=== PATIENT | male | born 1990 | race Caucasian/White ===

== ENCOUNTER 2017-05-28 09:08 | Observation (INO) | payer SELFPAY ==
[2017-05-28] MEDS ORDERED: FENTANYL CITRATE INJ/PF 100 MCG/2 ML AMPUL IV ONE (09:23)
[2017-05-28] MEDS ORDERED: METOCLOPRAMIDE HCL INJ/PF 10 MG/2 ML SDV IV ONE (09:23)
[2017-05-28] MEDS ORDERED: NORMAL SALINE 1000 ML 1,000 ML IV ONE (09:23)
--- NOTE | 2017-05-28 09:24 | ER Document Report ---
ED Medical Screen (RME) - General Chief Complaint: Abdominal Pain Stated Complaint: ABDOMINAL PAIN Time Seen by Provider: 05/28/17 09:19 Mode of Arrival: Ambulatory Information source: Patient Notes: 26-year-old male presents with complaints of generalized abdominal pain worse in the right lower quadrant since last night. Patient denies any fevers chills nausea vomiting or diarrhea. Patient notes it hurts in any position. Patient denies any previous similar episodes denies any previous abdominal surgeries I have greeted and performed a rapid initial assessment of this patient. A comprehensive ED assessment and evaluation of the patient, analysis of test results and completion of the medical decision making process will be conducted by additional ED providers. PHYSICAL EXAMINATION: GENERAL: Well-appearing, well-nourished and in no acute distress. HEAD: Atraumatic, normocephalic. EYES: Pupils equal round extraocular movements intact, conjunctiva are normal. ENT: Nares patent NECK: Normal range of motion Abdomen: Tender in the right lower quadrant LUNGS: No respiratory distress Musculoskeletal: Normal range of motion NEUROLOGICAL: Normal speech, normal gait. PSYCH: Normal mood, normal affect. SKIN: Warm, Dry, normal turgor, no rashes or lesions noted. TRAVEL OUTSIDE OF THE [place] IN LAST 30 DAYS: No - Related Data Allergies/Adverse Reactions: No Known Allergies Allergy (Unverified 05/28/17 09:19) Past Medical History - Social History Frequency of alcohol use: None Drug Abuse: None Renal/ Medical History: Denies: Hx Peritoneal Dialysis Physical Exam - Vital signs Vitals: Temp Pulse Resp BP Pulse Ox 98.8 F 75 17 157/86 H 97 05/28/17 09:12 05/28/17 09:12 05/28/17 09:12 05/28/17 09:12 05/28/17 09:12 Course - Vital Signs Vital signs: Temp Pulse Resp BP Pulse Ox 98.8 F 75 17 157/86 H 97 05/28/17 09:12 05/28/17 09:12 05/28/17 09:12 05/28/17 09:12 05/28/17 09:12
[2017-05-28 09:51] LABS: HEMATOCRIT 47.8 % (37.9-51.0); HEMOGLOBIN 16.3 g/dL (13.5-17.0); MEAN CORPUSCULAR HEMOGLOBIN 30.4 pg (27.0-33.4); MEAN CORPUSCULAR HGB CONC 34.1 g/dL (32.0-36.0); MEAN CORPUSCULAR VOLUME 89 fl (80-97); PLATELET COUNT 186 10^3/uL (150-450); RED BLOOD COUNT 5.37 10^6/uL (4.35-5.55); RED CELL DISTRIBUTION WIDTH 12.4 % (11.5-14.0); WHITE BLOOD COUNT 26.7 10^3/uL (4.0-10.5)
[2017-05-28 09:57] LABS: APPEARANCE,URINE CLEAR; BILIRUBIN,URINE NEGATIVE (NEGATIVE); COLOR,URINE YELLOW; GLUCOSE, URINE NEGATIVE (NEGATIVE); KETONES,URINE TRACE mg/dL (NEGATIVE); LEUKOCYTE ESTERASE,URINE NEGATIVE (NEGATIVE); NITRITE,URINE NEGATIVE (NEGATIVE); PROTEIN,URINE NEGATIVE (NEGATIVE); URINE SPECIFIC GRAVITY 1.026
--- NOTE | 2017-05-28 09:59 | ER Document Report ---
ED GI/ - General Chief Complaint: Abdominal Pain Stated Complaint: ABDOMINAL PAIN Time Seen by Provider: 05/28/17 09:19 Mode of Arrival: Ambulatory Notes: Patient is a 26-year-old male presents emergency department with chief complaint of abdominal pain. Patient says it started last evening approximately 12 hours ago generalized abdominal pain and this morning he woke up a visit with his right lower quadrant. He admits to nausea without vomiting denies any fevers or chills, diarrhea consultation. Patient states that his last bowel movement was last evening and was loose. Denies anyUrinary symptoms. Denies any history of kidney stones. Denies any flank pain at this time. Denies any previous abdominal surgeries patient is a pack-a-day smoker TRAVEL OUTSIDE OF THE [place] IN LAST 30 DAYS: No - Related Data Allergies/Adverse Reactions: No Known Allergies Allergy (Unverified 05/28/17 09:19) Past Medical History - General Information source: Patient - Social History Smoking Status: Current Every Day Smoker Frequency of alcohol use: None Drug Abuse: None Family History: Reviewed & Not Pertinent Patient has suicidal ideation: No Patient has homicidal ideation: No Renal/ Medical History: Denies: Hx Peritoneal Dialysis Review of Systems - Review of Systems Notes: REVIEW OF SYSTEMS: CONSTITUTIONAL : Denies fever, chills, or sweats. Denies recent illness. CARDIOVASCULAR: Denies chest pain. Denies palpitations or racing or irregular heart beat. Denies ankle edema. RESPIRATORY: Denies cough, cold, or chest congestion. Denies shortness of breath, difficulty breathing, or wheezing. GASTROINTESTINAL: See hpi. Denies vomiting, or diarrhea. Denies blood in vomitus, stools, or per rectum. Denies black, tarry stools. Denies constipation. GENITOURINARY: Denies difficulty urinating, painful urination, burning, frequency, blood in urine, or discharge. MUSCULOSKELETAL: Denies any muscle spasms, difficulty walking, extremity pain SKIN: Denies rash, lesions or sores. HEMATOLOGIC : Denies easy bruising or bleeding. LYMPHATIC: Denies swollen, enlarged glands. NEUROLOGICAL: Denies confusion or altered mental status. Denies passing out or loss of consciousness. Denies dizziness or lightheadedness. Denies headache. Denies weakness or paralysis or loss of use of either side. Denies problems with gait or speech. Denies sensory loss, numbness, or tingling. Denies seizures. PSYCHIATRIC: Denies anxiety or stress. Denies depression, suicidal ideation, or homicidal ideation. ALL OTHER SYSTEMS REVIEWED AND NEGATIVE. Dictation was performed using [employer] voice recognition software Physical Exam - Vital signs Vitals: Temp Pulse Resp BP Pulse Ox 98.8 F 75 17 157/86 H 97 05/28/17 09:12 05/28/17 09:12 05/28/17 09:12 05/28/17 09:12 05/28/17 09:12 - Notes Notes: PHYSICAL EXAM GENERAL: Alert, interacts well. HEAD: Normocephalic, atraumatic. NECK: Full range of motion. Supple. Trachea midline. LUNGS: Clear to auscultation bilaterally, no wheezes, rales, or rhonchi. No respiratory distress. HEART: Regular rate and rhythm. No murmurs, gallops, or rubs. ABDOMEN: Soft, nondistended, moderate right lower quadrant tenderness. Positive McBurney's point tenderness. No guarding, rebound, or rigidity.. Bowel sounds present in all 4 quadrants. EXTREMITIES: Moves all 4 extremities spontaneously. No edema, radial and dorsalis pedis pulses 2/4 bilaterally. No cyanosis. NEUROLOGICAL: Alert and oriented x4. Normal speech. PSYCH: Normal affect, normal mood. SKIN: Warm, dry, normal turgor. No rashes or lesions noted. Course - Re-evaluation Re-evalutation: 05/28/17 13:00 Patient is a 26-year-old male who is hemodynamically stable, no acute distress afebrile. CBC with evidence of leukocytosis with left shift 26,000. Presence of right lower quadrant pain concerning for appendicitis. CT the abdomen pelvis shows acute appendicitis without evidence of abscess or perforation. Patient has been n.p.o. since midnight. Patient's been accepted to hospital service and to go to the OR for appendectomy. Patient and family member agree with plan. Stable at this time. - Vital Signs Vital signs: Temp Pulse Resp BP Pulse Ox 99.9 F 99 16 135/73 H 96 05/28/17 14:49 05/28/17 14:49 05/28/17 14:49 05/28/17 14:49 05/28/17 14:49 - Laboratory Result Diagrams: 05/28/17 09:30 05/28/17 09:30 Laboratory results interpreted by me: 05/28/17 05/28/17 09:30 09:30 WBC 26.7 H Seg Neuts % (Manual) 91 H Lymphocytes % (Manual) 4 L Abs Neuts (Manual) 24.3 H Urine Ketones TRACE H Urine Urobilinogen 4.0 H - Diagnostic Test Radiology reviewed: Image reviewed, Reports reviewed Discharge - Discharge Clinical Impression: Appendicitis Qualifiers: Appendicitis type: acute appendicitis Acute appendicitis type: with localized peritonitis Qualified Code(s): K35.3 - Acute appendicitis with localized peritonitis Condition: Stable Disposition: ADMITTED INPATIENT Admitting Provider: Surgicalist
[2017-05-28 10:10] LABS: ALANINE AMINOTRANSFERASE 53 U/L (21-72); ALBUMIN 4.7 g/dL (3.5-5.0); ALKALINE PHOSPHATASE 51 U/L (38-126); ANION GAP 11 (5-19); ASPARTATE AMINO TRANSFERASE 21 U/L (17-59); BILIRUBIN,DIRECT 0.4 mg/dL (0.0-0.4); BILIRUBIN,TOTAL 0.5 mg/dL (0.2-1.3); BLOOD UREA NITROGEN 13 mg/dL (7-20); CALCIUM 9.9 mg/dL (8.4-10.2); CARBON DIOXIDE 24 mmol/L (22-30); CHLORIDE 106 mmol/L (98-107); GLUCOSE 110 mg/dL (75-110); LIPASE 31.5 U/L (23-300); POTASSIUM 4.4 mmol/L (3.6-5.0); SODIUM 140.6 mmol/L (137-145); TOTAL PROTEIN 7.3 g/dL (6.3-8.2)
[2017-05-28 10:21] LABS: ABSOLUTE LYMPHOCYTES# (MANUAL) 1.1 10^3/uL (0.5-4.7); ABSOLUTE MONOCYTES # (MANUAL) 1.1 10^3/uL (0.1-1.4); ABSOLUTE NEUTROPHILS# (MANUAL) 24.3 10^3/uL (1.7-8.2); BASOPHILS % (MANUAL) 0 % (0-2); EOSINOPHILS % (MANUAL) 1 % (0-6); LYMPHOCYTES % (MANUAL) 4 % (13-45); MONOCYTES % (MANUAL) 4 % (3-13); SEGMENTED NEUTROPHILS % (MAN) 91 % (42-78); TOTAL CELLS COUNTED 100
[2017-05-28 10:22] LABS: PLATELET COMMENT ADEQUATE; RBC MORPHOLOGY COMMENT NORMO-CYTIC/CHROMIC
[2017-05-28] MEDS ORDERED: PROCHLORPERAZINE EDISYLATE INJ 10 MG/2 ML VIAL IV ONE (10:53)
--- NOTE | 2017-05-28 12:46 | RADIOLOGY REPORT (SQ) ---
EXAM DESCRIPTION: CT ABD/PELVIS WITH IV ORAL COMPLETED DATE/TIME: 05/28/2017 12:15 pm REASON FOR STUDY: Generalized pain worst RLQ COMPARISON: None. TECHNIQUE: CT scan of the abdomen and pelvis performed using helical scanning technique with dynamic intravenous contrast injection. No oral contrast. Images reviewed with lung, soft tissue, and bone windows. Reconstructed coronal and sagittal MPR images reviewed. Delayed images for evaluation of the urinary system also acquired. All images stored on PACS. All CT scanners at this facility use dose modulation, iterative reconstruction, and/or weight based d osing when appropriate to reduce radiation dose to as low as reasonably achievable (ALARA). [facility]: Dose Right [facility]: CareDose [facility]: Dose Right [facility]: Teradose 4D [facility]: Cerora CONTRAST TYPE AND DOSE: contrast/concentration: Isovue 370.00 mg/ml; Total Contrast Delivered: 100.0 ml; Total Saline Delivered: 72.0 ml RENAL FUNCTION: BUN 13 creatinine 0.86. RADIATION DOSE: CT Rad equipment meets quality standard of care and radiation dose reduction techniq ues were employed. CTDIvol: 11.5 - 15.4 mGy. DLP: 1514 mGy-cm.. LIMITATIONS: None. FINDINGS: LOWER CHEST: No significant findings. No nodules or infiltrates. LIVER: Normal size. No masses. No dilated ducts. SPLEEN: Normal size. No focal lesions. PANCREAS: No masses. No significant calcifications. No adjacent inflammation or peripancreatic fluid collections. Pancreatic duct not dilated. GALLBLADDER: No identified stones by CT criteria. No inflammatory changes to suggest cholecystitis. ADRENAL GLANDS: No significant masses or asymmetry. RIGHT KIDNEY AND URETER: No solid masses. No significant calcifications. No hydronephrosis or hyd roureter. LEFT KIDNEY AND URETER: No solid masses. No significant calcifications. No hydronephrosis or hydr oureter. AORTA AND VESSELS: No aneurysm. No dissection. Renal arteries, SMA, celiac without stenosis. RETROPERITONEUM: No retroperitoneal adenopathy, hemorrhage or masses. BOWEL AND PERITONEAL CAVITY: No masses or inflammatory changes. No free fluid or peritoneal masses. APPENDIX: Distended with thickened wall. Best visualized on coronal images (series 601 images 26 to 34). Transverse measurement 9 to 10 mm. Areas of high density material within the lumen, possible a ppendicoliths. Inflammatory stranding in the periappendiceal soft tissues. No abnormal fluid collec tion or gas. PELVIS: No mass. No free fluid. Normal bladder. ABDOMINAL WALL: No masses. No hernias. BONES: No significant or acute findings. OTHER: No other significant finding. IMPRESSION: 1. ACUTE APPENDICITIS. NO EVIDENCE OF ABSCESS OR PERFORATION. 2. NO OTHER SIGNIFICANT OR ACUTE FINDING IN THE ABDOMEN OR PELVIS ON CT SCAN WITH IV CONTRAST. TECHNICAL DOCUMENTATION: JOB ID: [id number] Quality ID # [id number]: Final reports with documentation of one or more dose reduction techniques (e.g., Au tomated exposure control, adjustment of the mA and/or kV according to patient size, use of iterative reconstruction technique) 2010 [employer]- All Rights Reserved Reading location - IP/workstation name: [email or web address]
[2017-05-28] MEDS ORDERED: PIPERACILLIN/TAZOBACTAM 3.375 GM VIAL IV ONE (13:43)
[2017-05-28] MEDS ORDERED: BUPIVACAINE HCL 0.25 % INJ/PF (2.5 MG/1 ML) 30 ML VIAL ONE (14:26)
[2017-05-28] MEDS ORDERED: LIDOCAINE 1% INJ-PF (10 MG/ML) 30 ML SDV ONE (14:26)
[2017-05-28] MEDS: RINGERS SOLUTION,LACTATED 1,000 ML IV PRN (14:37)
[2017-05-28] MEDS ORDERED: DEXAMETHASONE SOD PHOSPHATE INJ 4 MG/1 ML VIAL ONE (15:50)
[2017-05-28] MEDS ORDERED: ROCURONIUM BROMIDE INJ 50 MG/5 ML VIAL IV ONE (15:50)
[2017-05-28] MEDS ORDERED: SUCCINYLCHOLINE CHLORIDE INJ 200 MG/10 ML VIAL ONE (15:50)
[2017-05-28] MEDS ORDERED: ONDANSETRON HCL INJ/PF 4 MG/2 ML SDV ONE (15:50)
[2017-05-28] MEDS ORDERED: MIDAZOLAM 2 MG/2 ML INJ ONE (15:59)
[2017-05-28] MEDS ORDERED: HYDROMORPHONE HCL INJ/PF 2 MG/ML AMPULE ONE (15:59)
[2017-05-28] MEDS ORDERED: FENTANYL CITRATE INJ/PF 100 MCG/2 ML AMPUL ONE ×2 (15:59)
[2017-05-28] MEDS ORDERED: EPHEDRINE SULFATE INJ 50 MG/1 ML AMPULE ONE (16:00)
[2017-05-28] MEDS ORDERED: PROPOFOL INJ 200 MG/20 ML VIAL IV ONE (16:00)
[2017-05-28] MEDS ORDERED: ACETAMINOPHEN 100 ML IV ONE (16:00)
--- NOTE | 2017-05-28 16:19 | PDOC H&P ---
History of Present Illness Admission Date/PCP: 05/28/17 14:30 History of Present Illness: KELLY VILLEGAS is a 26 [address] old male with CT confirmed appendicitis. He had developed generalized abdominal pain that settled in the right lower quadrant beginning 11 pm last night. Associated nausea. Social History Smoking Status: Current Every Day Smoker - Advance Directive Resuscitation Status: Full Code Family History Family History: Reviewed & Not Pertinent Parental Family History Reviewed: No Children Family History Reviewed: Unknown Sibling(s) Family History Reviewed.: Unknown Medication/Allergy Home Medications: No Home Medications 05/28/17 Allergies/Adverse Reactions: No Known Allergies Allergy (Unverified 05/28/17 09:19) Review of Systems Constitutional: PRESENT: anorexia. ABSENT: chills, fever(s), headache(s), weight gain, weight loss Eyes: ABSENT: visual disturbances Ears: ABSENT: hearing changes Cardiovascular: ABSENT: chest pain, dyspnea on exertion, edema, orthropnea, palpitations Respiratory: ABSENT: cough, hemoptysis Gastrointestinal: PRESENT: as per HPI, abdominal pain, nausea Genitourinary: ABSENT: dysuria, hematuria Musculoskeletal: ABSENT: joint swelling Integumentary: ABSENT: rash, wounds Neurological: ABSENT: abnormal gait, abnormal speech, confusion, dizziness, focal weakness, syncope Psychiatric: ABSENT: anxiety, depression, homidical ideation, suicidal ideation Physical Exam Vital Signs: Temp Pulse Resp BP Pulse Ox 99.9 F 99 16 135/73 H 96 05/28/17 14:49 05/28/17 14:49 05/28/17 14:49 05/28/17 14:49 05/28/17 14:49 General appearance: PRESENT: no acute distress, well-developed, well-nourished Head exam: PRESENT: atraumatic, normocephalic Eye exam: PRESENT: conjunctiva pink, EOMI, PERRLA. ABSENT: scleral icterus Ear exam: PRESENT: normal external ear exam Neck exam: ABSENT: carotid bruit, JVD, lymphadenopathy, thyromegaly Respiratory exam: PRESENT: clear to auscultation howie. ABSENT: rales, rhonchi, wheezes Cardiovascular exam: PRESENT: RRR. ABSENT: diastolic murmur, rubs, systolic murmur GI/Abdominal exam: PRESENT: tenderness - RLQ tenderness Neurological exam: PRESENT: alert, awake, oriented to person, oriented to place , oriented to time, oriented to situation, CN II-XII grossly intact. ABSENT: motor sensory deficit Results Impressions: Abdomen/Pelvis CT 05/28/17 09:23 IMPRESSION: 1. ACUTE APPENDICITIS. NO EVIDENCE OF ABSCESS OR PERFORATION. 2. NO OTHER SIGNIFICANT OR ACUTE FINDING IN THE ABDOMEN OR PELVIS ON CT SCAN WITH IV CONTRAST. Assessment & Plan - Diagnosis (1) Appendicitis Qualifiers: Appendicitis type: acute appendicitis Acute appendicitis type: with localized peritonitis Qualified Code(s): K35.3 - Acute appendicitis with localized peritonitis Is this a current diagnosis for this admission?: Yes - Plan Summary Plan Summary: Admit NPO IV Zosyn 3.375g pain control For laparoscopic appendectomy .DVT prophylaxis
[2017-05-28] MEDS ORDERED: PROMETHAZINE HCL INJ 25 MG/1 ML VIAL IV PRN (16:48)
[2017-05-28] MEDS ORDERED: MEPERIDINE HCL/PF INJ 25 MG/1 ML DISP.SYRIN IV PRN (16:48)
[2017-05-28] MEDS ORDERED: DIPHENHYDRAMINE HCL 50 MG/ML VIAL IV PRN (16:48)
[2017-05-28] MEDS ORDERED: FENTANYL CITRATE INJ/PF 100 MCG/2 ML AMPUL IV PRN ×4 (16:48→18:13)
[2017-05-28] MEDS ORDERED: ONDANSETRON HCL INJ/PF 4 MG/2 ML SDV IV PRN (18:06)
--- NOTE | 2017-05-28 18:34 | Operative Report ---
Operative Report PREOPERATIVE DIAGNOSIS: Acute Appendicitis POSTOPERATIVE DIAGNOSIS: Acute Appendicitis OPERATION: Laparoscopic Appendectomy SURGEON: ELENA GALEANA ANESTHESIA: GA TISSUE REMOVED OR ALTERED: Appendix COMPLICATIONS: None ESTIMATED BLOOD LOSS: 10 ml INTRAOPERATIVE FINDINGS: 1. Appendix running on the lateral cecal wall. 2. Appendix is acutely infllammed with erythematous thick wall no perforation or gangrene PROCEDURE: The patient was brought to the operating room and placed on the operating table. General endotracheal anesthesia was administered and he was positioned supine with the left arm tucked by his side. The patient just received 3.375g IV Zosyn started from the ER. A time out was done. The abdomen was prepped with chloraprep and sterile drapes laid. Under sterile aseptic conditions, a Verres needle was introduced at the Walsh's point and pneumperitoneum insufflated to 15mmHg. Access to the peritoneal cavity was gained using the optical bladeless trocar technique with a 10mm port at the umbilicus. Two additional ports were placed under direct vision, a 12mm left lower quadrant port and a 5mm midline suprapubic port. The patient was then positioned in trendelenberg with his right side up. Fibrous adhesions between the appendix and mesoappendix and the lateral cecal wall were transected sharply with the scissor and the appendix bluntly teased off the mesoappendix. It was grasped with a bowel clamp and a window created in the mesoappendix at the base of the appendix. It was transected at its base with the [place] linear stapler 60mm blue load - 3.5mm closed to a 1.5mm. The mesoappendix was divided with the Ligasure. The appendix was retrieved from the peritoneal cavity in an endopouch. The umbilical and left lower quadrant port sites had their fascial layers closed with 0-prolene using the endoclosure device. The pneumoperitoneum was desufflated and all the ports removed. The skin incisions were closed with 4-0 monocryl subcuticular stitches. The wounds were infiltrated with local anesthesia, a 1:1 mixture of 1% lidocaine and 0.25% Bupivacaine, a total of 20 ml, they were cleaned and dressed with dermabond. The patient tolerated the procedure well, he was extubated in the operating room and taken to the PACU in stable condition.
[2017-05-28] MEDS ORDERED: ENOXAPARIN SODIUM INJ 40 MG/0.4 ML DISP.SYRIN SUBCUT ONE (19:00)
[2017-05-28] MEDS: PIPERACILLIN SODIUM/TAZOBACTAM 3.375 GM in NORMAL SALINE 100 ML IV SCH (21:58)
[2017-05-28] MEDS ORDERED: ZOLPIDEM TARTRATE 5 MG TABLET PO SCH (22:00)
[2017-05-29] MEDS ORDERED: PIPERACILLIN/TAZOBACTAM 3.375 GM VIAL IV SCH
[2017-05-29] MEDS: DOCUSATE SODIUM 100 MG CAPSULE PO SCH ×3 (00:28→21:28)
[2017-05-29] MEDS: ZOLPIDEM TARTRATE 5 MG TABLET PO SCH ×2 (00:28→21:27)
[2017-05-29] MEDS: PIPERACILLIN SODIUM/TAZOBACTAM 3.375 GM in NORMAL SALINE 100 ML IV SCH ×4 (02:23→21:27)
[2017-05-29] MEDS: RINGERS SOLUTION,LACTATED 1,000 ML IV PRN (02:29)
[2017-05-29 07:25] LABS: HEMATOCRIT 41.2 % (37.9-51.0); MEAN CORPUSCULAR HEMOGLOBIN 30.4 pg (27.0-33.4); MEAN CORPUSCULAR HGB CONC 34.5 g/dL (32.0-36.0); MEAN CORPUSCULAR VOLUME 88 fl (80-97); PLATELET COUNT 155 10^3/uL (150-450); RED BLOOD COUNT 4.68 10^6/uL (4.35-5.55); RED CELL DISTRIBUTION WIDTH 12.8 % (11.5-14.0); WHITE BLOOD COUNT 21.8 10^3/uL (4.0-10.5)
[2017-05-29 07:52] LABS: HEMOGLOBIN 14.2 g/dL (13.5-17.0)
[2017-05-29 08:13] LABS: ABSOLUTE LYMPHOCYTES# (MANUAL) 2.6 10^3/uL (0.5-4.7); ABSOLUTE MONOCYTES # (MANUAL) 0.2 10^3/uL (0.1-1.4); BASOPHILS % (MANUAL) 0 % (0-2); EOSINOPHILS % (MANUAL) 0 % (0-6); LYMPHOCYTES % (MANUAL) 11 % (13-45); MONOCYTES % (MANUAL) 1 % (3-13); SEGMENTED NEUTROPHILS % (MAN) 87 % (42-78); TOTAL CELLS COUNTED 100
[2017-05-29 08:14] LABS: PLATELET COMMENT ADEQUATE; TOXIC GRANULATION SLIGHT
[2017-05-29] MEDS ORDERED: DOCUSATE SODIUM 100 MG/10 ML UDC PO SCH (10:00)
[2017-05-29] MEDS: ENOXAPARIN SODIUM INJ 40 MG/0.4 ML DISP.SYRIN SUBCUT SCH (10:23)
--- NOTE | 2017-05-29 14:34 | PDOC PROGRESS REPORT ---
Subjective Progress Note for:: 05/29/17 Subjective:: POD #1 s/p laparoscopic appendectomy The patient is doing subjectively well. No abdominal pain or fever Tolerating an oral diet Reason For Visit: ACUTE APPENDICITIS Physical Exam Vital Signs: Temp Pulse Resp BP Pulse Ox 98.2 F 76 20 115/71 100 05/29/17 12:00 05/29/17 12:00 05/29/17 12:00 05/29/17 12:00 05/29/17 12:00 Intake & Output 05/28/17 05/29/17 05/30/17 06:59 06:59 06:59 Intake Total 3760 Output Total 20 Balance 3740 Weight 94.602 kg General appearance: PRESENT: no acute distress, obese, well-developed, well- nourished Head exam: PRESENT: atraumatic, normocephalic Respiratory exam: PRESENT: clear to auscultation howie. ABSENT: rales, rhonchi, wheezes Cardiovascular exam: PRESENT: RRR. ABSENT: diastolic murmur, rubs, systolic murmur GI/Abdominal exam: PRESENT: normal bowel sounds, soft, other - incisions are clean, dry, intact Neurological exam: PRESENT: alert, awake, oriented to person, oriented to place , oriented to time, oriented to situation, CN II-XII grossly intact. ABSENT: motor sensory deficit Results Laboratory Results: 05/29/17 06:57 05/29/17 06:57 WBC 21.8 H RBC 4.68 Hgb 14.2 D Hct 41.2 MCV 88 MCH 30.4 MCHC 34.5 RDW 12.8 Plt Count 155 Seg Neutrophils % Not Reportable Lymphocytes % Not Reportable Monocytes % Not Reportable Eosinophils % Not Reportable Basophils % Not Reportable Absolute Neutrophils Not Reportable Absolute Lymphocytes Not Reportable Absolute Monocytes Not Reportable Absolute Eosinophils Not Reportable Absolute Basophils Not Reportable Impressions: Abdomen/Pelvis CT 05/28/17 09:23 IMPRESSION: 1. ACUTE APPENDICITIS. NO EVIDENCE OF ABSCESS OR PERFORATION. 2. NO OTHER SIGNIFICANT OR ACUTE FINDING IN THE ABDOMEN OR PELVIS ON CT SCAN WITH IV CONTRAST. Assessment & Plan - Diagnosis (1) Appendicitis Qualifiers: Appendicitis type: acute appendicitis Acute appendicitis type: with localized peritonitis Qualified Code(s): K35.3 - Acute appendicitis with localized peritonitis Is this a current diagnosis for this admission?: Yes - Plan Summary Plan Summary: The patient still has significant leucocytosis although trending down at 21,000. I will keep him in the hospital and continue IV antibiotics until his leucocytosis improves more - he may need 24-48 hrs more. Plan on discharging on oral antibiotics.
[2017-05-30] MEDS: PIPERACILLIN SODIUM/TAZOBACTAM 3.375 GM in NORMAL SALINE 100 ML IV SCH ×4 (03:57→21:39)
[2017-05-30] MEDS: RINGERS SOLUTION,LACTATED 1,000 ML IV PRN (03:57)
[2017-05-30 07:46] LABS: ABSOLUTE BASOPHILS # (AUTO) 0.1 10^3/uL (0.0-0.2); ABSOLUTE EOSINOPHILS # (AUTO) 0.2 10^3/uL (0.0-0.6); ABSOLUTE LYMPHOCYTES (AUTO) 3.2 10^3/uL (0.5-4.7); ABSOLUTE MONOCYTES (AUTO) 1.3 10^3/uL (0.1-1.4); ABSOLUTE NEUT (AUTO) 10.9 10^3/uL (1.7-8.2); BASOPHILS % (AUTO) 0.5 % (0-2); EOSINOPHILS % (AUTO) 1.2 % (0-6); HEMATOCRIT 43.4 % (37.9-51.0); HEMOGLOBIN 14.8 g/dL (13.5-17.0); LYMPHOCYTES % (AUTO) 20.7 % (13-45); MEAN CORPUSCULAR HEMOGLOBIN 30.5 pg (27.0-33.4); MEAN CORPUSCULAR HGB CONC 34.1 g/dL (32.0-36.0); MEAN CORPUSCULAR VOLUME 90 fl (80-97); MONOCYTES % (AUTO) 8.1 % (3-13); PLATELET COUNT 151 10^3/uL (150-450); RED BLOOD COUNT 4.84 10^6/uL (4.35-5.55); SEGMENTED NEUTROPHILS % (AUTO) 69.5 % (42-78); TOTAL CELLS COUNTED % (AUTO) 100 %; WHITE BLOOD COUNT 15.7 10^3/uL (4.0-10.5)
[2017-05-30] MEDS: DOCUSATE SODIUM 100 MG CAPSULE PO SCH ×2 (10:10→21:40)
[2017-05-30] MEDS: ENOXAPARIN SODIUM INJ 40 MG/0.4 ML DISP.SYRIN SUBCUT SCH (10:10)
--- NOTE | 2017-05-30 13:13 | PDOC PROGRESS REPORT ---
Subjective Progress Note for:: 05/30/17 Subjective:: comfortable Reason For Visit: ACUTE APPENDICITIS Physical Exam Vital Signs: Temp Pulse Resp BP Pulse Ox 98.4 F 79 18 137/75 H 98 05/30/17 12:02 05/30/17 12:02 05/30/17 12:02 05/30/17 12:02 05/30/17 12:02 Intake & Output 05/29/17 05/30/17 05/31/17 06:59 06:59 06:59 Intake Total 3760 Output Total 20 Balance 3740 Weight 94.602 kg 92.3 kg General appearance: PRESENT: no acute distress Respiratory exam: PRESENT: clear to auscultation howie Cardiovascular exam: PRESENT: RRR GI/Abdominal exam: PRESENT: normal bowel sounds, soft, other - wounds c/d/i Results Laboratory Results: 05/30/17 07:08 05/30/17 07:08 WBC 15.7 H RBC 4.84 Hgb 14.8 Hct 43.4 MCV 90 MCH 30.5 MCHC 34.1 RDW 13.0 Plt Count 151 Seg Neutrophils % 69.5 Lymphocytes % 20.7 Monocytes % 8.1 Eosinophils % 1.2 Basophils % 0.5 Absolute Neutrophils 10.9 H Absolute Lymphocytes 3.2 Absolute Monocytes 1.3 Absolute Eosinophils 0.2 Absolute Basophils 0.1 Impressions: Abdomen/Pelvis CT 05/28/17 09:23 IMPRESSION: 1. ACUTE APPENDICITIS. NO EVIDENCE OF ABSCESS OR PERFORATION. 2. NO OTHER SIGNIFICANT OR ACUTE FINDING IN THE ABDOMEN OR PELVIS ON CT SCAN WITH IV CONTRAST. Assessment & Plan - Diagnosis (1) Appendicitis Qualifiers: Appendicitis type: acute appendicitis Acute appendicitis type: with localized peritonitis Qualified Code(s): K35.3 - Acute appendicitis with localized peritonitis Is this a current diagnosis for this admission?: Yes - Plan Summary Plan Summary: A/ POD#2 after appendectomy for acute appendicitis VSS, AF WBC down from 21 K yesterday to 15 Koday Diet tolerated P/ Heplock IVF Stop IV narcotics Tylenol for pain Patient to remain hospitalized until WBC is < 13K Continue IV abx for now
[2017-05-30] MEDS ORDERED: ACETAMINOPHEN 325 MG TABLET PO PRN (13:14)
[2017-05-31] MEDS: PIPERACILLIN SODIUM/TAZOBACTAM 3.375 GM in NORMAL SALINE 100 ML IV SCH ×2 (03:19→09:22)
[2017-05-31 07:23] LABS: ABSOLUTE BASOPHILS # (AUTO) 0.1 10^3/uL (0.0-0.2); ABSOLUTE EOSINOPHILS # (AUTO) 0.3 10^3/uL (0.0-0.6); ABSOLUTE LYMPHOCYTES (AUTO) 2.9 10^3/uL (0.5-4.7); ABSOLUTE MONOCYTES (AUTO) 0.8 10^3/uL (0.1-1.4); ABSOLUTE NEUT (AUTO) 4.6 10^3/uL (1.7-8.2); BASOPHILS % (AUTO) 1.3 % (0-2); EOSINOPHILS % (AUTO) 3.5 % (0-6); HEMATOCRIT 43.2 % (37.9-51.0); HEMOGLOBIN 14.7 g/dL (13.5-17.0); LYMPHOCYTES % (AUTO) 33.2 % (13-45); MEAN CORPUSCULAR HEMOGLOBIN 30.8 pg (27.0-33.4); MEAN CORPUSCULAR HGB CONC 34.1 g/dL (32.0-36.0); MEAN CORPUSCULAR VOLUME 90 fl (80-97); MONOCYTES % (AUTO) 8.9 % (3-13); PLATELET COUNT 152 10^3/uL (150-450); RED BLOOD COUNT 4.78 10^6/uL (4.35-5.55); RED CELL DISTRIBUTION WIDTH 12.9 % (11.5-14.0); SEGMENTED NEUTROPHILS % (AUTO) 53.1 % (42-78); TOTAL CELLS COUNTED % (AUTO) 100 %; WHITE BLOOD COUNT 8.7 10^3/uL (4.0-10.5)
[2017-05-31 09:54] VITALS: BP 131/67
--- NOTE | 2017-05-31 10:12 | PDOC PROGRESS REPORT ---
Subjective Progress Note for:: 05/31/17 Subjective:: No c/o, no fever Reason For Visit: ACUTE APPENDICITIS Physical Exam Vital Signs: Temp Pulse Resp BP Pulse Ox 98.2 F 86 16 131/67 H 98 05/31/17 09:45 05/31/17 09:45 05/31/17 09:45 05/31/17 09:45 05/31/17 09:45 Intake & Output 05/30/17 05/31/17 06/01/17 06:59 06:59 06:59 Intake Total 300 Balance 300 Weight 92.3 kg 92.2 kg General appearance: PRESENT: no acute distress Respiratory exam: PRESENT: clear to auscultation howie Cardiovascular exam: PRESENT: RRR GI/Abdominal exam: PRESENT: soft, other - incisions c/d/i Results Laboratory Results: 05/31/17 07:01 05/31/17 07:01 WBC 8.7 RBC 4.78 Hgb 14.7 Hct 43.2 MCV 90 MCH 30.8 MCHC 34.1 RDW 12.9 Plt Count 152 Seg Neutrophils % 53.1 Lymphocytes % 33.2 Monocytes % 8.9 Eosinophils % 3.5 Basophils % 1.3 Absolute Neutrophils 4.6 Absolute Lymphocytes 2.9 Absolute Monocytes 0.8 Absolute Eosinophils 0.3 Absolute Basophils 0.1 Impressions: Abdomen/Pelvis CT 05/28/17 09:23 IMPRESSION: 1. ACUTE APPENDICITIS. NO EVIDENCE OF ABSCESS OR PERFORATION. 2. NO OTHER SIGNIFICANT OR ACUTE FINDING IN THE ABDOMEN OR PELVIS ON CT SCAN WITH IV CONTRAST. Assessment & Plan - Diagnosis (1) Appendicitis Qualifiers: Appendicitis type: acute appendicitis Acute appendicitis type: with localized peritonitis Qualified Code(s): K35.3 - Acute appendicitis with localized peritonitis Is this a current diagnosis for this admission?: Yes - Plan Summary Plan Summary: A/ POD #3 after laparoscopic appendectomy VSS, AF WBC normal PE unremarkable P/ Home today Regular diet Shower only x 2 weeks, then he can bathe Npo wound care needed Activities as tolerated, resume gym with caution x 2 weeks F/u with Dr. Bradford next week Tylenol as needed for pain Miralax or Colace as needed for constipation
--- NOTE | 2017-05-31 10:29 | DISCHARGE SUMMARY E ---
Discharge Summary NAME: KELLY VILLEGAS : 1990 AGE: 26Y ADMITTED: 05/28/2017 DISCHARGED: 05/31/2017 FINAL DIAGNOSIS: ACUTE APPENDICITIS, NOT PERFORATED. PROCEDURE: On 05/28/2017, the patient underwent a laparoscopic appendectomy. COMPLICATIONS: None. HOSPITAL COURSE: This iso a 26-year-old healthy male, who presented to the emergency room on May 28 with a right lower quadrant abdominal pain. CT scan was done revealing acute appendicitis, no perforation. His white count was about 21,000. The patient was taken to surgery and underwent laparoscopic appendectomy uneventfully. His hospital course was uneventful. His vital signs remained stable. The patient was able to tolerate p.o. well. He was kept on antibiotics (Zosyn 3.375 grams via piggyback every 6 hours)until the day of discharge. His white count improved until the day of discharge. The patient had no complaints, tolerating p.o. well, vital signs were stable. His white blood cell count was 8.6. His physical exam was unremarkable. DISCHARGE ORDERS: The patient was discharged to home on 05/31/2017. He was given a followup appointment with Dr. Cevallos in the clinic within week. Shower only, bath in 2 weeks. No wound care needed. Tylenol as needed by mouth for pain. MiraLax or Colace as needed for constipation. DICTATING PHYSICIAN: KEVIN VALDEZ M.D. [id number] PHY#: [id number] ID: [id number] JOB#: [id number] ACCT: [id number] cc:Valeriano PARKER M.D. >
== END 2017-05-31 11:14 | disposition home or self-care (01) ==
LOC: ER 09:08 → EH 14:30 → INTOOBSV 14:30 → 2N 19:16
PROVIDERS: ADMIT Surgery; ATTEND Surgery
PROC: 0DTJ4ZZ Resection of Appendix, Percutaneous Endoscopic Approach (ICD-10-PCS; principal; 2017-05-28 15:45)
DX: K35.3 Acute appendicitis with localized peritonitis (principal); D72.829 Elevated white blood cell count, unspecified; F17.210 Nicotine dependence, cigarettes, uncomplicated
CPT/HCPCS: 36415; 74177; 80053; 81001; 83690; 840; 85025; 88304; 96361; 96374; 96375; 99285; J0131; J0330; J0780; J1100; J1170; J1650; J2250; J2405; J2543; J2704; J2765; J3010; J3490; J7030; J7120